=== PATIENT | male | born 1995 | race Caucasian/White ===

== ENCOUNTER 2020-11-15 08:38 | Emergency (ER) | payer MEDICAID ==
--- NOTE | 2020-11-15 09:28 | EDM.PDOC ---
ED HPI GENERAL MEDICAL PROBLEM - General Chief Complaint: Respiratory Problem Stated Complaint: SYMPTOMS OF COVID/BACK TROUBLE Time Seen by Provider: 11/15/20 09:14 - History of Present Illness INITIAL COMMENTS - FREE TEXT/NARRATIVE: History of present illness: [] Patient has several days of increasing pain in right posterior lower thorax. He also has worse pain in the lower lumbar spine. The pains are worse with movement. The patient also has 3 days of cough and upper respiratory symptoms. The patient's not vaccinated for COVID-19. Patient has chronic lower back pain but worse in the last day or 2. He has no loss of bowel or bladder function and control. He has no sensory loss in the saddle area or lower extremities. He has no motor loss in the lower extremities. He does not have fever or chills. Review of systems: As per history of present illness and below otherwise all systems reviewed and negative. Past medical history: As per history of present illness and as reviewed below otherwise noncontributo ry. Surgical history: As per history of present illness and as reviewed below otherwise noncontributory. Social history: No reported history of drug or alcohol abuse. Family history: As per history of present illness and as reviewed below otherwise noncontributory. Physical exam: Constitutional - well developed, well-nourished and in no acute distress HEENT - normocephalic, no evidence of trauma - external nose and mouth normal - no mass in neck and no JVD - mucosae moist EYES - full EOM, PERRL, no icterus - no evidence of inflammation, injection, or drainage Respiratory - no respiratory distress, equal bilateral expansion, lungs clear to auscultation and no abnormal lung sounds Cardiovascular - Regular Rhythm with S1 and S2 appreciated and no murmur, gallop or rub. GI - abdomen soft without distension or organomegaly - normal bowel sounds - no guard or rebound Musculoskeletal tender right lower posterior thorax and somewhat tender in the lower back. Straight leg raise negative for radicular pain. There is burning on the ipsilateral side of the low lumbar spine with straight leg raise. No gross deformity of long bones or joints - no tenderness, swelling or edema Neurologic - Alert and oriented times four - CN II-XII grossly intact - motor sensory and coordination symmetrically normal Psychiatric - appropriate mood and affect with normal thought content Hematologic - No petechiae or purpura - mucosa appropriate color and sclera not pale - normal nail bed color and refill Integument - no rash or evidence of trauma - normal turgor Diagnostics: [] Therapeutics: [] Impression: [] Plan: [] Definitive disposition and diagnosis as appropriate pending reevaluation and review of above. back Pain Score (Numeric/FACES): 7 - Related Data Allergies Allergy/AdvReac Type Severity Reaction Status Date / Time No Known Allergies Allergy Verified 11/15/20 08:56 Home Meds: Home Meds Omeprazole 20 mg PO BID 11/15/20 [History] Past Medical History HEENT History: Reports: None Cardiovascular History: Reports: None Respiratory History: Reports: None Gastrointestinal History: Reports: None Genitourinary History: Reports: None Musculoskeletal History: Reports: Back Pain, Chronic Neurological History: Reports: None Psychiatric History: Reports: None Endocrine/Metabolic History: Reports: None Hematologic History: Reports: None Immunologic History: Reports: None Oncologic (Cancer) History: Reports: None Dermatologic History: Reports: None - Infectious Disease History Infectious Disease History: Reports: None - Past Surgical History Head Surgeries/Procedures: Reports: None Social & Family History - Family History Family Medical History: No Pertinent Family History - Tobacco Use Tobacco Use Status *Q: Current Every Day Tobacco User Years of Tobacco use: 10 Packs/Tins Daily: 1 - Caffeine Use Caffeine Use: Reports: Coffee, Energy Drinks, Soda - Recreational Drug Use Recreational Drug Use: No ED ROS GENERAL - Review of Systems Review Of Systems: Comprehensive ROS is negative, except as noted in HPI. ED EXAM, GENERAL - Physical Exam Exam: See Below Free Text/Narrative:: My physical exam is in the HPI Course - Vital Signs Last Recorded V/S: Last Vital Signs Temp 36.2 C 11/15/20 08:57 Pulse 95 11/15/20 08:57 Resp 20 11/15/20 08:57 BP 147/92 H 11/15/20 08:57 Pulse Ox 96 11/15/20 08:57 - Orders/Labs/Meds Labs: Laboratory Tests 11/15/20 11/15/20 Range/Units 09:23 09:28 Urine Color DARK YELLOW Urine Appearance CLEAR Urine pH 6.0 (5.0-8.0) Ur Specific [place] >= 1.030 (1.001-1.035) Urine Protein NEGATIVE (NEGATIVE) mg/dL Urine Glucose (UA) NEGATIVE (NEGATIVE) mg/dL Urine Ketones NEGATIVE (NEGATIVE) mg/dL Urine Occult Blood NEGATIVE (NEGATIVE) Urine Nitrite NEGATIVE (NEGATIVE) Urine Bilirubin NEGATIVE (NEGATIVE) Urine Urobilinogen 0.2 (<2.0) EU/dL Ur Leukocyte Esterase NEGATIVE (NEGATIVE) Influenza Type A RNA NEGATIVE (NEGATIVE) Influenza Type B RNA NEGATIVE (NEGATIVE) SARS-CoV-2 RNA (MILAGROS) POSITIVE H (NEGATIVE) Meds: Medications Discontinued Medications Generic Name Dose Route Start Last Admin Trade Name Freq PRN Reason Stop Dose Admin Ketorolac Tromethamine 30 mg 11/15/20 10:30 Ketorolac 30 Mg/Ml Sdv IM 11/15/20 10:31 ONETIME ONE Departure - Departure Time of Disposition: 10:34 Disposition: Home, Self-Care 01 Condition: Good Clinical Impression: Musculoskeletal pain, COVID-19 - Discharge Information Instructions: Muscle Pain, Adult, Symptoms of COVID-[address] - [facility] [place] (04/16/2020), COVID-19 Frequently Asked Questions, COVID-19 Vaccine Information, 10 Things You Can Do to Manage Your COVID-19 Symptoms at Home - [facility] [place] (09/07/2020) Referrals: PCP,None [Primary Care Provider] - Forms: ED Department Discharge Additional Instructions: [facility] - [facility] [address] [place] [id number] [facility] [address] [place] [id number] Anti-inflammatories for pain-drink plenty of fluids-get some rest- The following information is given to patients seen in the emergency department who are being discharged to home. This information is to outline your options for follow-up care. We provide all patients seen in our emergency department with a follow-up referral. The need for follow-up, as well as the timing and circumstances, are variable depending upon the specifics of your emergency department visit. If you don't have a primary care physician on staff, we will provide you with a referral. We always advise you to contact your personal physician following an emergency department visit to inform them of the circumstance of the visit and for follow-up with them and/or the need for any referrals to a consulting specialist. The emergency department will also refer you to a specialist when appropriate. This referral assures that you have the opportunity for follow-up care with a specialist. All of these measure are taken in an effort to provide you with optimal care, which includes your follow-up. Under all circumstances we always encourage you to contact your private physician who remains a resource for coordinating your care. When calling for follow-up care, please make the office aware that this follow-up is from your recent emergency room visit. If for any reason you are refused follow-up, please contact the [facility] Emergency Department at and asked to speak to the emergency department charge nurse. Sepsis Event Note (ED) - Evaluation Sepsis Screening Result: No Definite Risk - Focused Exam Vital Signs: Vital Signs Temp Pulse Resp BP Pulse Ox 11/15/20 08:57 36.2 C 95 20 147/92 H 96
--- NOTE | 2020-11-15 10:04 | CR ---
INDICATION: Posterior thoracic pain with cough. TECHNIQUE: Chest 1 view. COMPARISON: None. FINDINGS: Cardiovascular and mediastinum: Heart size and vasculature are normal in caliber and appearance. Lungs and pleural spaces: Lungs are clear. No sign of infiltrate or mass. No sign of pleural effusion. No pneumothorax. Bones and soft tissues: No significant findings. IMPRESSION: Negative chest. Dictated by Rylan Mix MD @ 11/15/2020 10:02:04 AM (Electronically Signed)
[2020-11-15 10:05] LABS: CORONAVIRUS COVID-19 NAA POSITIVE (NEGATIVE); INFLUENZA A NAA NEGATIVE (NEGATIVE); INFLUENZA B NAA NEGATIVE (NEGATIVE)
[2020-11-15] MEDS ORDERED: Ketorolac 30 MG/ML SDV IM ONE (10:30)
== END 2020-11-15 10:52 | disposition home or self-care (01) ==
LOC: MW.ED 08:38
DX: U07.1 COVID-19 (principal); Z79.899 Other long term (current) drug therapy; Z72.0 Tobacco use
CPT/HCPCS: 0240U; 71045; 81003; 96372; 99283; J1885

== ENCOUNTER 2020-11-24 03:35 | Emergency (ER) | payer MEDICAID ==
[2020-11-24] MEDS ORDERED: predniSONE 20 MG Tab PO ONE (04:01)
[2020-11-24] MEDS ORDERED: Naproxen 500 MG Tab PO ONE (04:02)
--- NOTE | 2020-11-24 04:11 | EDM.PDOC ---
ED HPI GENERAL MEDICAL PROBLEM - General Chief Complaint: General Stated Complaint: BIG TOE ON LEFT FOOT IS SWOLLEN AND SORE Time Seen by Provider: 11/24/20 03:58 - History of Present Illness INITIAL COMMENTS - FREE TEXT/NARRATIVE: CHIEF COMPLAINT(S): Left foot pain HISTORY OF PRESENT ILLNESS: This is a 19-year-old man with significant past medical history who presents emergency department with a chief complaint of left foot pain. Patient states that he has been experiencing pain in his left big toe upon awakening. He denies any injury to this area and denies any history of gout. He never had before. He currently rates his pain as 10 out of 10 and describes it as throbbing. He denies any IV drug use, fever. He has not yet tried any pain medication. Movement exacerbates the pain. This pain does not r adiate. There is no numbness or tingling. He denies any other symptoms. REVIEW OF SYSTEMS: Constitutional: Denies fever, chills. Eyes: Denies eye pain Ears, Nose, Mouth, & Throat: Denies earache Cardiovascular: Denies chest pain Respiratory: Denies shortness of breath Gastrointestinal: Denies Nausea, vomiting, diarrhea, hematochezia. Genitourinary: Denies hematuria Skin:Denies a rash MSK: Positive for left big toe pain Neurological: Denies blurred vision Psychiatric: Denies depression PAST MEDICAL HISTORY: As per history of present illness and as reviewed below otherwise noncontributory. SURGICAL HISTORY: As per history of present illness and as reviewed below otherwise noncontributory. SOCIAL HISTORY: As per history of present illness and as reviewed below otherwise noncontributory. FAMILY HISTORY: As per history of present illness and as reviewed below otherwise noncontributory. EXAMINATION OF ORGAN SYSTEMS/BODY AREAS: Constitutional: Blood pressure 141/76, heart rate 100, respiratory rate 18 with an oxygen saturation of 98% on room air. Temperature 36.6 General: Well-appearing man who is in no acute distress Psychiatric: Appropriate mood and affect. Eyes: No scleral icterus or conjunctival erythema ENMT: Moist mucous membranes. No pharyngeal erythema Cardiovascular: Regular, rate, and rhythm. No gallops, murmurs, or rubs. Bilateral upper extremity and lower extremity pulses symmetric and intact. No peripheral edema. No JVD. Respiratory: Lungs clear to auscultation bilaterally. No wheezes, rales, or rhonchi. Musculoskeletal: Decreased range of motion of the left great toe secondary to pain. Left big toe is tender to palpation. No obvious deformity. There is no obvious swelling but there is some redness in the area. Skin is not overly warm. Skin: No lesions or abrasions. Neurological: Alert, GCS 15 distal sensation is intact MEDICAL DECISION MAKING AND COURSE IN THE ED WITH INTERPRETATION/REVIEW OF DIAGNOSTIC STUDIES: This is a 25-year-old man without any significant past medical history who presents to the emergency department with left great toe pain. At this time we will provide the patient with prednisone and naproxen by mouth. I did discuss treatment for gout at home. I did give the patient strict return precautions. He was amenable to this plan and had no further questions. DISPOSITION: The patient was discharged home in stable condition. The patient will follow up with primary care physician in 3 to 5 days for reevaluation CONDITION: fair PROCEDURES: None FINAL IMPRESSION(S)/DIAGNOSES: 1. Acute left big toe pain likely secondary to gout Fly Evans M.D. Left Toe-[place] Pain Score (Numeric/FACES): 10 - Related Data Allergies Allergy/AdvReac Type Severity Reaction Status Date / Time No Known Allergies Allergy Verified 11/24/20 03:45 Home Meds: Home Meds Omeprazole 20 mg PO BID 11/15/20 [History] Naproxen [Naprosyn] 500 mg PO Q12HR #28 tab 11/24/20 [Rx] predniSONE [Prednisone] 50 mg PO DAILY #5 tablet 11/24/20 [Rx] Past Medical History HEENT History: Reports: None Cardiovascular History: Reports: None Respiratory History: Reports: None Gastrointestinal History: Reports: None Genitourinary History: Reports: None Musculoskeletal History: Reports: Back Pain, Chronic Neurological History: Reports: None Psychiatric History: Reports: None Endocrine/Metabolic History: Reports: None Hematologic History: Reports: None Immunologic History: Reports: None Oncologic (Cancer) History: Reports: None Dermatologic History: Reports: None - Infectious Disease History Infectious Disease History: Reports: None - Past Surgical History Head Surgeries/Procedures: Reports: None Social & Family History - Family History Family Medical History: No Pertinent Family History - Caffeine Use Caffeine Use: Reports: Coffee, Energy Drinks - Recreational Drug Use Recreational Drug Use: No ED ROS GENERAL - Review of Systems Review Of Systems: See Below ED EXAM, GENERAL - Physical Exam Exam: See Below Course - Vital Signs Last Recorded V/S: Last Vital Signs Temp 36.6 C 11/24/20 03:45 Pulse 100 11/24/20 03:45 Resp 18 11/24/20 03:45 BP 141/76 H 11/24/20 03:45 Pulse Ox 98 11/24/20 03:45 - Orders/Labs/Meds Meds: Medications Discontinued Medications Generic Name Dose Route Start Last Admin Trade Name Sandy PRN Reason Stop Dose Admin Naproxen 500 mg 11/24/20 04:02 11/24/20 04:09 Naproxen 500 Mg Tab PO 11/24/20 04:03 500 mg ONETIME ONE Administration Prednisone 60 mg 11/24/20 04:01 11/24/20 04:09 Prednisone 20 Mg Tab PO 11/24/20 04:02 60 mg ONETIME ONE Administration Departure - Departure Time of Disposition: 04:10 Disposition: Home, Self-Care 01 Condition: Fair Clinical Impression: Gout attack - Discharge Information Prescriptions: Naproxen [Naprosyn] 500 mg PO Q12HR #28 tab predniSONE [Prednisone] 50 mg PO DAILY #5 tablet Instructions: Low-Purine Eating Plan, Gout, [id number] Referrals: PCP,None [Primary Care Provider] - Forms: ED Department Discharge Additional Instructions: You were evaluated today on an emergent basis. At this time I do believe you are experiencing gout. Please use the prednisone and naproxen as prescribed. As discussed these medications can cause ulcers and I do recommend you eat with them. If you have any worsening pain, redness, pus drainage, or fever I like you to return to the emergency department. Otherwise please follow-up with primary care physician in 1 to 2 weeks. [facility] - [facility] [address] [place] [address] [id number] [address] [id number] The patient is informed of any results of their evaluation and diagnostic workup and all questions are answered. They are given discharge instructions and return precautions. The patient is stable for discharge. The patient states they understand and agree with the plan and that they will return if their symptoms get worse or if they have any new concerns. The following information is given to patients seen in the emergency department who are being discharged to home. This information is to outline your options for follow-up care. We provide all patients seen in our emergency department with a follow-up referral. The need for follow-up, as well as the timing and circumstances, are variable depending upon the specifics of your emergency department visit. If you don't have a primary care physician on staff, we will provide you with a referral. We always advise you to contact your personal physician following an emergency department visit to inform them of the circumstance of the visit and for follow-up with them and/or the need for any referrals to a consulting specialist. The emergency department will also refer you to a specialist when appropriate. This referral assures that you have the opportunity for follow-up care with a specialist. All of these measure are taken in an effort to provide you with optimal care, which includes your follow-up. Under all circumstances we always encourage you to contact your private physician who remains a resource for coordinating your care. When calling for follow-up care, please make the office aware that this follow-up is from your recent emergency room visit. If for any reason you are refused follow-up, please contact the [facility] Emergency Department at and asked to speak to the emergency department charge nurse.
== END 2020-11-24 04:20 | disposition home or self-care (01) ==
LOC: MW.ED 03:35
DX: M10.9 Gout, unspecified (principal)
CPT/HCPCS: 99283; A9270

== ENCOUNTER 2021-01-13 10:24 | Emergency (ER) | payer MEDICAID, OTHER ==
[2021-01-13] MEDS ORDERED: Penicillin V Potassium 500 MG Tab PO STA (10:44)
[2021-01-13] MEDS ORDERED: Benzocaine 20% Topical Spray UD MUCMEM ONE (10:45)
[2021-01-13] MEDS ORDERED: Lidocaine 2% Viscous Solution 15 ML Cup PO ONE (10:45)
[2021-01-13] MEDS ORDERED: Acetaminophen/HYDROcodone 325-5 MG Tab PO ONE (10:45)
--- NOTE | 2021-01-13 10:53 | EDM.PDOC ---
ED HPI GENERAL MEDICAL PROBLEM - General Chief Complaint: ENT Problem Stated Complaint: TOOTH ACHE RIGHT SIDE SWELLING Time Seen by Provider: 01/13/21 10:35 Source of Information: Reports: Patient History Limitations: Reports: No Limitations - History of Present Illness INITIAL COMMENTS - FREE TEXT/NARRATIVE: HISTORY AND PHYSICAL: History of present illness: Patient is a 25-year-old male who presents to the emergency room with complaints of right lower dental pain that has been ongoing for the past few days. Today he woke up and had noted swelling to the right lower jawline. He states he has had work done on the tooth in question, did not follow-up as he was directed. Patient denies any fever, chills, headache, change in vision, syncope or near syncope. Denies any chest pain, back pain, shortness of breath or cough. Denies any GI or symptoms. Patient has been eating and drinking appropriately. No recent travel or sick contacts. Review of systems: As per history of present illness and below otherwise all systems reviewed and negative. Past medical history: As per history of present illness and as reviewed below otherwise noncontributory. Surgical history: As per history of present illness and as reviewed below otherwise noncontributory. Social history: See social history for further information Family history: As per history of present illness and as reviewed below otherwise noncontributory. Physical exam: General: Well developed and well nourished 25 year old male. Alert and orientated x 3. Nontoxic in appearance and in no acute distress. Vital signs are stable and have been reviewed by me. Nursing notes were reviewed. HEENT: Atraumatic, normocephalic, pupils equal and reactive bilaterally, negative for conjunctival pallor or scleral icterus, mucous membranes moist, visible swelling to the right lower jawline, tooth #29 has swelling around the gumline with fluctuance. No floor tenderness. TMs normal bilaterally, throat clear, neck supple, nontender, trachea midline. No drooling or trismus noted. No meningeal signs. No hot potato voice noted. Lungs: Clear to auscultation bilaterally. No wheezes, rales, or rhonchi. Chest nontender. Normal work of breathing, no accessory muscles used. Heart: S1S2, regular rate and rhythm without overt murmur, gallops, or rubs. No JVD. No peripheral edema Abdomen: Soft, nondistended, nontender. Skin: Intact, warm, dry. No lesions or rashes noted. Hematologic: No petechiae or purpra. Mucosa appropriate color and normal nail bed color and refill. Extremities: Atraumatic, moves all extremities per self without difficulty or deficits, negative for cords or calf pain. Neurovascular unremarkable. Neuro: Awake, alert, oriented. Cranial nerves II through XII unremarkable. Cerebellum unremarkable. Motor and sensory unremarkable throughout. Exam nonfocal. Psychiatric: Mood and affect are appropriate. Normal thought process. Answering questions appropriately. Please note that the patient was seen and evaluated during the 2019 SARS-CoV-2 novel coronavirus pandemic period. Community viral transmission is ongoing at time of this encounter and the emergency department is operating under pandemic response procedures. Medical Decision Making: I have talked with the patient about today's findings, in addition to providing specific details for plan of care. Reassessment at the time of disposition demonstrates that the patient is in no acute distress. The patient is stable for discharge, counseling was provided and we discussed in great detail signs and symptoms that would prompt them to return to the Emergency Department. Medication, follow up and supportive care measures were reviewed and discussed. Voices understanding and is agreeable to plan of care. Denies any further questions or concerns at this time. Diagnostics: None Therapeutics: Dental balls, Pen VK, Williams Prescription: Williams (#20), Pen VK Impression: Dental Abscess Plan: 1. You were evaluated today on an emergent basis. Your tooth is infected. Please take the antibiotic as prescribed. On Thursday please call the dentist to set up a follow-up appointment. 2. Tylenol and/or ibuprofen as needed for pain management. "Tooth Balls" have been given to you; apply along the gumline every 2-3 hours as needed. Do not swallow these; external use only. Williams 1-2 tabs every 4 hours as needed for pain management. This mediation is a narcotic, so do not take while driving or needing to be functioning outside the house. 3. We encourage you to follow up with a dentist for re-evaluation and further care/management. 4. If your symptoms should worsen, new symptoms develop or any of the signs and symptoms we discussed should arise please return to the emergency room or call 911 (if needed). Definitive disposition and diagnosis as appropriate pending reevaluation and review of above. Right Lower Jaw Pain Score (Numeric/FACES): 10 - Related Data Allergies Allergy/AdvReac Type Severity Reaction Status Date / Time No Known Allergies Allergy Verified 01/13/21 10:33 Home Meds: Home Meds Omeprazole 20 mg PO BID 11/15/20 [History] Past Medical History HEENT History: Reports: None Cardiovascular History: Reports: None Respiratory History: Reports: None Gastrointestinal History: Reports: GERD Genitourinary History: Reports: None Musculoskeletal History: Reports: Back Pain, Chronic Neurological History: Reports: None Psychiatric History: Reports: None Endocrine/Metabolic History: Reports: None Hematologic History: Reports: None Immunologic History: Reports: None Oncologic (Cancer) History: Reports: None Dermatologic History: Reports: None - Infectious Disease History Infectious Disease History: Reports: None - Past Surgical History Head Surgeries/Procedures: Reports: None Social & Family History - Family History Family Medical History: No Pertinent Family History - Tobacco Use Tobacco Use Status *Q: Current Every Day Tobacco User Years of Tobacco use: 7 Packs/Tins Daily: 1 - Caffeine Use Caffeine Use: Reports: Coffee, Energy Drinks, Soda ED ROS ENT - Review of Systems Review Of Systems: Comprehensive ROS is negative, except as noted in HPI. ED EXAM, ENT - Physical Exam Exam: See Below (See dictation) Course - Vital Signs Last Recorded V/S: Last Vital Signs Temp 97.2 F 01/13/21 10:34 Pulse 96 01/13/21 10:34 Resp 18 01/13/21 10:34 BP 146/88 H 01/13/21 10:34 Pulse Ox 97 01/13/21 10:34 - Orders/Labs/Meds Meds: Medications Discontinued Medications Generic Name Dose Route Start Last Admin Trade Name Freq PRN Reason Stop Dose Admin Hydrocodone Bitart/Acetaminophen 1 tab 01/13/21 10:45 Acetaminophen/Hydrocodone 325-5 Mg Tab PO 01/13/21 10:46 ONETIME ONE Benzocaine 2 each 01/13/21 10:45 Benzocaine 20% Topical [place] [facility] MUCMEM 01/13/21 10:46 ONETIME ONE Lidocaine HCl 15 ml 01/13/21 10:45 Lidocaine 2% Viscous Solution 15 Ml Cup PO 01/13/21 10:46 ONETIME ONE Penicillin V Potassium 500 mg 01/13/21 10:44 Penicillin V Potassium 500 Mg Tab PO 01/13/21 10:45 NOW STA Departure - Departure Time of Disposition: 10:48 Disposition: Home, Self-Care 01 Clinical Impression: Dental abscess - Discharge Information Instructions: Dental Abscess, Ssee-rn-Oxom Referrals: PCP,None [Primary Care Provider] - Additional Instructions: The following information is given to patients seen in the emergency department who are being discharged to home. This information is to outline your options for follow-up care. We provide all patients seen in our emergency department with a follow-up referral. The need for follow-up, as well as the timing and circumstances, are variable depending upon the specifics of your emergency department visit. If you don't have a primary care physician on staff, we will provide you with a referral. We always advise you to contact your personal physician following an emergency department visit to inform them of the circumstance of the visit and for follow-up with them and/or the need for any referrals to a consulting specialist. The emergency department will also refer you to a specialist when appropriate. This referral assures that you have the opportunity for follow-up care with a specialist. All of these measure are taken in an effort to provide you with optimal care, which includes your follow-up. Under all circumstances we always encourage you to contact your private physician who remains a resource for coordinating your care. When calling for follow-up care, please make the office aware that this follow-up is from your recent emergency room visit. If for any reason you are refused follow-up, please contact the [facility] Emergency Department at and asked to speak to the emergency department charge nurse. [facility] [address] [place] [id number] [address] Thank you for choosing the [facility] emergency department in [facility] for your medical needs today. It was a pleasure caring for you. Today you were seen in the emergency department for dental abscess. 1. You were evaluated today on an emergent basis. Your tooth is infected. Please take the antibiotic as prescribed. On Thursday please call the dentist to set up a follow-up appointment. 2. Tylenol and/or ibuprofen as needed for pain management. "Tooth Balls" have been given to you; apply along the gumline every 2-3 hours as needed. Do not swallow these; external use only. Williams 1-2 tabs every 4 hours as needed for pain management. This mediation is a narcotic, so do not take while driving or needing to be functioning outside the house. 3. We encourage you to follow up with a dentist for re-evaluation and further care/management. 4. If your symptoms should worsen, new symptoms develop or any of the signs and symptoms we discussed should arise please return to the emergency room or call 911 (if needed). Sepsis Event Note (ED) - Focused Exam Vital Signs: Vital Signs Temp Pulse Resp BP Pulse Ox 01/13/21 10:34 97.2 F 96 18 146/88 H 97
== END 2021-01-13 11:13 | disposition home or self-care (01) ==
LOC: MW.ED 10:24
DX: K04.7 Periapical abscess without sinus (principal); K21.9 Gastro-esophageal reflux disease without esophagitis; Z79.899 Other long term (current) drug therapy; Z72.0 Tobacco use
CPT/HCPCS: 99282; A9270

== ENCOUNTER 2021-06-25 15:33 | Emergency (ER) | payer MEDICAID, OTHER ==
[2021-06-25] MEDS ORDERED: Ketorolac 60 MG/2 ML SDV IM ONE (16:28)
== END 2021-06-25 17:04 | disposition home or self-care (01) ==
LOC: MW.ED 15:33
DX: K04.7 Periapical abscess without sinus (principal); K21.9 Gastro-esophageal reflux disease without esophagitis; F17.210 Nicotine dependence, cigarettes, uncomplicated; Z86.16 Personal history of COVID-19; Z79.899 Other long term (current) drug therapy
CPT/HCPCS: 41800; 96372; 99282; J1885

== ENCOUNTER 2021-12-17 14:00 | Emergency (ER) | payer MEDICAID ==
[2021-12-17] MEDS ORDERED: Sodium Chloride 0.9% 1,000 ML IV ONE ×2 (14:13→15:19)
[2021-12-17 15:15] LABS: CARBON DIOXIDE,CO2 20.6 mmol/L (21.0-32.0); POTASSIUM,K 3.2 mmol/L (3.5-5.1)
[2021-12-17] MEDS ORDERED: Potassium Chloride 20 MEQ Tab.ER PO ONE (15:19)
[2021-12-17] MEDS ORDERED: LORazepam 2 MG/ML SDV IVPUSH ONE (15:24)
[2021-12-17] MEDS ORDERED: Iopamidol 755 MG/ML 500 ML Multipack Bottle IVPUSH STA (17:07)
== END 2021-12-17 21:55 | disposition home or self-care (01) ==
LOC: MW.ED 14:00
DX: K85.20 Alcohol induced acute pancreatitis without necrosis or infection (principal); K83.1 Obstruction of bile duct; F10.10 Alcohol abuse, uncomplicated; F19.10 Other psychoactive substance abuse, uncomplicated; K21.9 Gastro-esophageal reflux disease without esophagitis; Z79.899 Other long term (current) drug therapy; Z20.822 Contact with and (suspected) exposure to COVID-19; Y90.8 Blood alcohol level of 240 mg/100 ml or more
CPT/HCPCS: 36415; 74177; 80053; 80305; 80307; 81001; 83690; 83735; 85025; 87635; 96361; 96374; 99285; A9270; J2060; J7030; Q9967; 99284; U0002

== ENCOUNTER 2022-05-17 17:19 | Emergency (ER) | payer SELFPAY ==
[2022-05-17] MEDS ORDERED: Sodium Chloride 0.9% 10 ML Syringe FLUSH PRN (19:09)
[2022-05-17] MEDS ORDERED: Sodium Chloride 0.9% 2.5 ML Syringe FLUSH PRN (19:09)
[2022-05-17] MEDS ORDERED: Sodium Chloride 0.9% 1,000 ML IV STA ×2 (19:10→20:00)
[2022-05-17] MEDS ORDERED: LORazepam 2 MG/ML SDV IVPUSH STA (19:14)
[2022-05-17] MEDS ORDERED: Nicotine 21 MG/24 Hr Patch TRDERM STA (19:18)
[2022-05-17 20:00] LABS: CARBON DIOXIDE,CO2 25.9 mmol/L (21.0-32.0); POTASSIUM,K 3.8 mmol/L (3.5-5.1)
[2022-05-17] MEDS ORDERED: chlordiazePOXIDE 25 MG Cap PO STA (21:14)
== END 2022-05-17 22:28 | disposition home or self-care (01) ==
LOC: MW.ED 17:19
DX: F10.10 Alcohol abuse, uncomplicated (principal); F11.10 Opioid abuse, uncomplicated; K21.9 Gastro-esophageal reflux disease without esophagitis; Z79.899 Other long term (current) drug therapy; Z86.16 Personal history of COVID-19; Y90.8 Blood alcohol level of 240 mg/100 ml or more
CPT/HCPCS: 36415; 80053; 80305; 80307; 81001; 83690; 83735; 85025; 87086; 96361; 96374; 99284; A9270; J2060; J3490; J7030